=== PATIENT | female | born 1980 | race Caucasian/White ===

== ENCOUNTER 2022-11-17 13:21 | Emergency (ER) | payer OTHER, SELFPAY ==
--- NOTE | ~2022-11-17 | XR_ITS ---
EXAMINATION:XR_[id number]_CR DATE: 11/17/2022 14:07 INDICATION: Neck pain TECHNIQUE: AP, lateral, and odontoid views of the cervical spine are provided. COMPARISON: None FINDINGS: There are 2 mm of anterolisthesis of C4 on C5. The odontoid process is intact. No fracture is identified. There is moderate to severe loss of intervertebral disc space height at C5-6 and C6-7. The vertebral body heights are maintained. Small degenerative osteophytes project from the anterior endplates of multiple vertebral bodies. There is multilevel moderate facet and uncovertebral joint os teoarthritis. Prevertebral soft tissues are normal. IMPRESSION: 1. Moderate cervical spondylosis without acute findings. Reviewed, dictated and finalized at location A. R MAKER
--- NOTE | ~2022-11-17 | XR_ITS ---
EXAMINATION: XR lumbar spine 2-3V DATE: 11/17/2022 14:07 INDICATION: Low back pain TECHNIQUE: Anteroposterior and lateral views of the lumbar spine, and cone-down lateral view of the l umbosacral junction were obtained. COMPARISON: None. FINDINGS: Bone alignment is normal. There is no fracture. The vertebral body heights are normal. Ther e is mild loss of intervertebral disc space height throughout the lumbar spine. Small degenerative os teophytes project from the anterior endplates of multiple vertebral bodies. There is moderate facet j oint osteoarthritis at L4-5 and L5-S1. IMPRESSION: 1. Moderate lumbar spondylosis without acute findings. Reviewed, dictated and finalized at location A. [employer] TE[employer]IST
--- NOTE | ~2022-11-17 | XR_ITS ---
EXAMINATION: XR thoracic spine 3V DATE: 11/17/2022 14:07 INDICATION: Upper back pain TECHNIQUE: AP, lateral and lateral swimmer's views of the thoracic spine were obtained. COMPARISON: None. FINDINGS: Vertebral body alignment is maintained. There is mild loss of intervertebral disc space hei ght at multiple levels throughout the thoracic spine. There is no fracture. The vertebral body height s are normal. Small degenerative osteophytes project from the anterior endplates of multiple vertebra l bodies. IMPRESSION: 1. Mild thoracic spondylosis without acute findings. Reviewed, dictated and finalized at location A. TIGRAPHER
--- NOTE | 2022-11-17 13:29 | ED.GENADULT ---
HPI - General Adult General Chief complaint: Neck Pain/Injury Stated complaint: fall,neck,back and head pain Time Seen by Provider: 11/17/22 13:29 Source: patient Mode of arrival: ambulatory Limitations: no limitations History of Present Illness HPI narrative: 42-year-old female patient presents to the [facility] with complaints of neck and back pain after falling on the ice Two days ago. Patient states she did hit the back of her head but denies loss of consciousness. Denies any vision changes, lightheadedness, dizziness qid. Denies any nausea vomiting diarrhea. Patient states she has been taking 600 mg ibuprofen 3 times a day to help with headache and pain but states she her biggest complaint today is a lot of muscle soreness in the back and neck area. Related Data Home Medications Medication Instructions Recorded Confirmed omeprazole 20 mg capsule,delayed 20 mg PO DAILY 11/17/22 11/17/22 release Allergies Allergy/AdvReac Type Severity Reaction Status Date / Time No Known Allergies Allergy Verified 11/17/22 13:48 Review of Systems Review of Systems: CONSTITUTIONAL: Denies fever, chills, or sweats. EYES: Denies visual changes, redness, or discharge. ENT: Denies rhinorrhea, congestion, sore throat, or otalgia. CARDIOVASCULAR: Denies chest pain, palpitations, or edema. RESPIRATORY: Denies cough or dyspnea. GASTROINTESTINAL: Denies abdominal pain, nausea, vomiting, or diarrhea. GENITOURINARY: Denies dysuria or hematuria. SKIN: Denies rash or itching. MUSCULOSKELETAL: positive back pain, denies joint pain, or myalgia. NEUROLOGIC: Positive headache, denies numbness, or weakness. PSYCHIATRIC: Denies anxiety or depression. PMFSH Comments at the time of my signature I agree with nursing past medical history, surgical, social, and family history. There is no relevant family history pertinent to the presenting complaint. Exam Narrative: GENERAL: Well-appearing, well-nourished, and in no acute distress. HEAD: Normocephalic, atraumatic. No trigger point for headache. No palpable scalp tenderness or obvious deformity noted. No surface trauma noted. EYES: PERRLA and EOMI. ENT: Nares clear, no rhinorrhea or epistaxis. Mucous membranes moist. NECK: Supple, no lymphadenopathy. No surface trauma, soft tissue and muscle tenderness noted along the shoulder blades scapular area no obvious spasm noted. Trachea midline. No subq emphysema or crepitus. No tino tenderness, step-offs or deformity to firm Palpation at posterior midline. FROM without limitation or pain, normal flexion, extension,Lateral bending, rotation, and axial load. CHEST: Clear to auscultation. No respiratory distress. HEART: Regular rate and rhythm. No murmur heard. Normal peripheral pulses. ABDOMEN: Soft, nontender, nondistended, normal active bowel sounds. EXTREMITIES: Normal range of motion. No edema. BACK: Patient is able to ambulated without assistance. Pt is seated on the stretcher in no obvious distress. No surface trauma noted. muscle tenderness to Palpation noted over the T4 she area and the L4-L5 area. No Obvious spasm or mass. No step-offs or deformity noted to the cervical, thoracic and lumbar spine tenderness to firm Palpation at the midline in the T4 area and the L4-L5 area. No CVA tenderness to percussion. No saddle anesthesia. ROM: able to stand erect. Normal flexion, extension, Lateral bending and rotation without limitation or complaint of pain. SKIN: Warm, dry, no rash. NEURO: Alert and oriented x4, GCS 15. Cranial nerves II through XII grossly intact. No focal neurological deficits. Normal muscle strength and tone. Normal deep tendon reflexes. Negative Babinski, normal finger to nose coordination he had normal heel to luevano glide. Speech is clear. Normal gait. Negative Romberg and no pronator drift Course Course Level of Care: Express Care Visit Reevaluation(s) Reevaluation #1: Re-evaluated patient notified her that the x-ray does n
[2022-11-17 13:39] VITALS: BP 147/76; PULSE 73; RESP 18; TEMP 36.3; O2SAT 100
== END 2022-11-17 14:56 | disposition home or self-care (01) ==
PROVIDERS: Emergency Provider Nurse Practitioner Family
DX: S16.1XXA Strain of muscle, fascia and tendon at neck level, initial encounter (principal); W00.9XXA Unspecified fall due to ice and snow, initial encounter; S29.012A Strain of muscle and tendon of back wall of thorax, initial encounter; S21.209A Unspecified open wound of unspecified back wall of thorax without penetration into thoracic cavity, initial encounter
CPT/HCPCS: 72040; 72072; 72100; 99204; G0463

== ENCOUNTER 2023-12-23 16:25 | Emergency (ER) | payer OTHER, SELFPAY ==
--- NOTE | ~2023-12-23 | XR_ITS ---
EXAMINATION: XR knee LT min 4V DATE: 12/23/2023 17:05 INDICATION: Left knee pain. Fall. TECHNIQUE: 4 views of left knee were obtained. COMPARISON: None. FINDINGS: Bone alignment is normal. No fracture. There is mild tricompartmental osteoarthritis charac terized by tiny osteophytes. No knee joint effusion. IMPRESSION: 1. Mild left knee osteoarthritis. Reviewed, dictated and finalized at location A.
[2023-12-23 16:30] VITALS: BP 168/97; PULSE 70; RESP 16; TEMP 36.4; O2SAT 100
--- NOTE | 2023-12-23 17:31 | ED.LOWEXIN ---
HPI - Extremity Injury (Lower) General Chief Complaint: Extremity Injury, Lower Stated Complaint: knee pain, left Time Seen by Provider: 12/23/23 16:32 Source: patient Mode of arrival: ambulatory Limitations: no limitations History of Present Illness HPI Narrative: Patient is a 43-year-old female who presents the ED with report of left medial knee pain. Patient reports she tripped and fell in the middle of November and fell with her knees both bent inward. She landed mostly on her left knee. She has had pain in her left medial knee since then, intermittent, worse with certain movements. She is able to ambulate, but has some discomfort with this. She has been using Tylenol, ibuprofen, naproxen, topical diclofenac without significant improvement. She contacted her primary care doctor was referred to the ED for further evaluation. Patient denies any numbness or tingling. Denies swelling in lower leg. Denies calf pain. Related Data Home Medications Medication Instructions Recorded Confirmed omeprazole 20 mg capsule,delayed 20 mg PO DAILY 11/17/22 11/17/22 release Allergies Allergy/AdvReac Type Severity Reaction Status Date / Time No Known Allergies Allergy Verified 11/17/22 13:48 Review of Systems Review of Systems: CONSTITUTIONAL: Denies fever, chills, or sweats. MUSCULOSKELETAL: See HPI. NEUROLOGIC: Denies numbness, or weakness. All systems reviewed & are unremarkable except as noted in HPI and below Exam Narrative: GENERAL: Well appearing, well-nourished, non-toxic, in no acute distress. HEAD: Normocephalic, atraumatic. RESPIRATORY: Airway patent, respirations nonlabored. CARDIOVASCULAR: Regular rate and rhythm MUSCULOSKELETAL: Moves all extremities. No gross deformities. TTP along medial inferior L knee. No swelling noted anterior knee. No redness or warmth. Discomfort reported with valgus stress testing. Sensation intact. SKIN: Warm, dry, normal color. NEURO: A&O X3. Speech clear. Cranial nerves II-XII grossly intact. Steady gait. No ataxic movements. PSYCHIATRIC: Appropriate mood and affect. Normal interaction. Course Vital Signs Vital signs: Vital Signs Temperature 97.6 F 12/23/23 16:30 Pulse Rate 70 12/23/23 16:30 Respiratory Rate 16 12/23/23 16:30 Blood Pressure 168/97 H 12/23/23 16:30 Pulse Oximetry 100 12/23/23 16:30 Oxygen Delivery Room Air 12/23/23 16:30 Temperature 97.6 F 12/23/23 16:30 Pulse Rate 70 12/23/23 16:30 Respiratory Rate 16 12/23/23 16:30 Blood Pressure 168/97 H 12/23/23 16:30 Pulse Oximetry 100 12/23/23 16:30 Oxygen Delivery Room Air 12/23/23 16:30 MDM - Extremity Injury (Lower) MDM Narrative Medical decision making narrative: Patient present ED with several week history of left medial knee pain status post ground level mechanical fall. Patient?s injury is consistent with musculoskeletal etiology. No signs of neurologic or vascular compromise on physical examination. Compartments are soft without signs of compartment syndrome. XR showing mild arthritis, no joint effusion or other acute abnormality. Pain is consistent with exam and injury. Discussed possibility of meniscal or ligamentous injury. Patient is felt to be stable for discharge home and further outpatient management and treatment. Will refer to orthopedics for further evaluation. Advised patient to continue utilizing anti-inflammatories as needed, given return precautions. She is in agreement with plan. Discharged in stable condition. Medical Records Attestation: I reviewed the patient's medical records. Imaging Data Attestation: I personally reviewed and interpreted this imaging study as follows: Radiologist's impression: ITS Impressions Knee X-Ray 12/23/23 17:15 IMPRESSION: 1. Mild left knee osteoarthritis. Discharge Plan Discharge Clinical Impression: Acute internal derangement of knee Qualifiers: Laterality: left Qualifie
== END 2023-12-23 17:49 | disposition home or self-care (01) ==
PROVIDERS: Emergency Provider Physician Assistant
DX: M23.92 Unspecified internal derangement of left knee (principal); S89.92XA Unspecified injury of left lower leg, initial encounter; M17.12 Unilateral primary osteoarthritis, left knee; W19.XXXA Unspecified fall, initial encounter
CPT/HCPCS: 73564; 99283